=== PATIENT | female | born 1970 | race Caucasian/White ===

== ENCOUNTER 2016-08-05 21:12 | Emergency (ER) | payer OTHER ==
[~2016-08-05] VITALS: Ht 165.1 cm; Wt 89.3 kg
[~2016-08-05 21:12] MED LIST: ALBU1AER9 INH; CIPR-255 PO
[2016-08-05 21:17] VITALS: TEMP 36.8; Ht 165.1 cm; Wt 89.3 kg
[2016-08-05] MEDS ORDERED: SODIUM CHLORIDE 0.9% 1000ML 1,000 ML IV STA (22:23)
[2016-08-05] MEDS ORDERED: LORAZEPAM 2 MG/ML 1 ML VIAL IV STA ×2 (22:23→23:28)
--- NOTE | 2016-08-05 22:41 | EMERGENCY ROOM VISIT NOTE ---
History Report prepared by Krista: Nabeel Butt Under the Supervision of: Dr. Fredi Arevalo M.D. First contact with patient: 22:16 Chief Complaint: DETOX REQUEST Stated Complaint: WITHDRAWL FROM PILLS Nursing Triage Summary: Patient has a bed at a detox tomorrow and did not think she could make it through the night without some sort of help . History of Present Illness The patient is a 46 year old female who presents to the Emergency Room with complaints of withdrawal . She notes she was addicted to narcotics for years, and relapsed in May of 2016 and has been taking 6 to 10 Percocet and Vicodin everyday. She is to be admitted to a rehab facility tomorrow morning, but came in due to withdrawal symptoms over the last 48 hours. She notes having vomiting, diarrhea, abdominal pain, chills, and body aches. She denies any alcohol use, IV drug use, suicidal ideations, of other medical issues. She denies any history of smoking. She adds she recently had pneumonia. Source of History: patient Onset: about 48 hours ago Position: other (global) Quality: other (withdrawal symptoms) Timing: other (persistent) Associated Symptoms: + abdominal pain, + chills, + diarrhea, + vomiting Note: The patient notes having body aches. Review of Systems See HPI for pertinent positives & negatives. A total of 10 systems reviewed and were otherwise negative. Past Medical & Surgical Medical Problems: (1) Kidney stones Surgical Problems: (1) History of appendectomy (2) History of cholecystectomy (3) History of hysterectomy Family History Patient reports no known family medical history. Social History Smoking Status: Never Smoker Drug Use: none Marital Status: Housing Status: lives with family Occupation Status: employed Current/Historical Medications No Active Prescriptions or Reported Meds Allergies Coded Allergies: Vancomycin (Unverified Allergy, Severe, red man syndrome, 08/05/16) Physical Exam Vital Signs Date Time Temp Pulse Resp B/P Pulse Ox O2 Delivery O2 Flow Rate FiO2 08/06/16 00:47 104 18 125/88 98 08/05/16 23:09 82 16 129/89 96 Room Air 08/05/16 21:17 36.8 120 18 143/74 97 Room Air Physical Exam GENERAL: Patient is uncomfortable appearing and in mild distress. HEENT: No acute trauma, normocephalic atraumatic, mucous membranes dry, no nasal congestion, no scleral icterus. NECK: No stridor, no adenopathy, no meningismus, trachea is midline. LUNGS: No dyspnea. Clear to auscultation and equal bilaterally. No wheeze, no rhonchi. HEART: Tachycardic. No murmurs, rubs, gallops appreciated. ABDOMEN: Soft, nontender, bowel sounds positive, no masses appreciated, no peritonitis. BACK: No midline tenderness, no CVA tenderness EXTREMITIES: Normal motion all extremities, no cyanosis, no edema. NEUROLOGIC: Alert and oriented, no acute motor or sensory deficits, no focal weakness, cranial nerves grossly intact. SKIN: No rash, no jaundice, no diaphoresis. Medical Decision & Procedures Laboratory Results 08/05/16 22:30 Red Blood Count 4.54, Mean Corpuscular Volume 84.4, Mean Corpuscular Hemoglobin 29.1, Mean Corpuscular Hemoglobin Concent 34.5, Mean Platelet Volume 9.1, Neutrophils (%) (Auto) 69.5, Lymphocytes (%) (Auto) 21.7, Monocytes (%) (Auto) 7.8, Eosinophils (%) (Auto) 0.4, Basophils (%) (Auto) 0.3, Neutrophils # (Auto) 5.21, Lymphocytes # (Auto) 1.62, Monocytes # (Auto) 0.58, Eosinophils # (Auto) 0.03, Basophils # (Auto) 0.02 08/05/16 22:30 Test 08/05/16 22:30 08/05/16 22:36 08/05/16 22:47 White Blood Count 7.48 K/uL (4.8-10.8) Red Blood Count 4.54 M/uL (4.2-5.4) Hemoglobin 13.2 g/dL (12.0-16.0) Hematocrit 38.3 % (37-47) Mean Corpuscular Volume 84.4 fL (80-100) Mean Corpuscular Hemoglobin 29.1 pg (25-34) Mean Corpuscular Hemoglobin Concent 34.5 g/dl (32-36) Platelet Count 246 K/uL (130-400) Mean Platelet Volume 9.1 fL (7.4-10.4) Neutrophils (%) (Auto) 69.5 % Lymphocytes (%) (Auto) 21.7 % Monocytes (%) (Auto) 7.8 % Eosinophils (%) (Auto) 0.4 % Basophils (%) (Auto) 0.3 % Neutrophils # (Auto) 5.21 K/uL (1.4-6.5) Lymphocytes # (Auto) 1.62 K/uL (1.2-3.4) Monocytes # (Auto) 0.58 K/uL (0.11-0.59) Eosinophils # (Auto) 0.03 K/uL (0-0.5) Basophils # (Auto) 0.02 K/uL (0-0.2) RDW Standard Deviation 37.9 fL (36.4-46.3) RDW Coefficient of Variation 12.4 % (11.5-14.5) Immature Granulocyte % (Auto) 0.3 % Immature Granulocyte # (Auto) 0.02 K/uL (0.00-0.02) Est Creatinine Clear Calc Drug Dose 104.3 ml/min Estimated GFR () 110.6 Estimated GFR (Non- 95.4 BUN/Creatinine Ratio 12.1 (10-20) Calcium Level 9.5 mg/dl (8.5-10.1) Total Bilirubin 0.5 mg/dl (0.2-1) Aspartate Amino Transf (AST/SGOT) 14 U/L (15-37) Alanine Aminotransferase (ALT/SGPT) 35 U/L (12-78) Alkaline Phosphatase 88 U/L (45-117) Total Protein 7.8 gm/dl (6.4-8.2) Albumin 4.1 gm/dl (3.4-5.0) Globulin 3.7 gm/dl (2.5-4.0) Albumin/Globulin Ratio 1.1 (0.9-2) Bedside Hemoglobin 13.3 g/dl (12.0-16.0) Bedside Hematocrit 39 % (37-47) Bedside Sodium 143 mEq/L (135-144) Bedside Potassium 3.4 mEq/L (3.3-5.0) Bedside Chloride 103 mEq/L (101-112) Bedside Total CO2 23 mEq/l (24-31) Anion Gap 21.0 mmol/L (16-25) Bedside Blood Urea Nitrogen 8 mg/dl (7-18) Bedside Creatinine 0.7 mg/dl (0.6-1.3) Bedside Glucose (other) 113 mg/dl (70-99) Bedside Ionized Calcium (Lyric) 1.15 mmol/l (1.12-1.32) Bedside Lactic Acid Venous 1.66 mmol/L (0.90-1.70) Laboratory results as reviewed by me. Medications Administered Medications (Trade) Dose Ordered Sig/Jaelyn Route Start Time Stop Time Status Last Admin Dose Admin Sodium Chloride (Nss 1000ml) 1,000 ml @ 999 mls/hr Q1H1M STAT IV 08/05/16 22:23 08/05/16 23:23 DC 08/05/16 22:44 999 MLS/HR Lorazepam (Ativan Inj) 1 mg NOW STAT IV 08/05/16 22:23 08/05/16 22:25 DC 08/05/16 22:45 1 MG Lorazepam (Ativan Inj) 2 mg NOW STAT IV 08/05/16 23:28 08/05/16 23:29 DC 08/05/16 23:32 2 MG Ondansetron HCl (Zofran Inj) 4 mg NOW STAT IV 08/05/16 23:28 08/05/16 23:29 DC 08/05/16 23:32 4 MG Lorazepam (Ativan 1MG Home Pack) 1 homepack UD ONCE PO 08/06/16 00:45 08/06/16 00:46 DC 08/06/16 00:43 1 HOMEPACK Ondansetron HCl (ZOFRAN ODT 4MG Home Pack) 1 homepack UD ONCE PO 08/06/16 00:45 08/06/16 00:46 DC 08/06/16 00:43 1 HOMEPACK ED Course 2217: The patient was evaluated in room A10. A complete history and physical exam was performed. 2223: Ordered Ativan Inj 1 mg IV, and NSS 1,000 ml @ 999 mls/hr IV. 2327: The patient notes the Ativan did nothing for her. 2328: Ordered Zofran Inj 4 mg IV, and Ativan Inj 2 mg IV. 0030: Reevaluated the patient. Discussed results and discharge instructions: She verbalized understanding and agreement. The patient is ready for discharge. Medical Decision 46 yr old female 48 hours post last narcotic after several months of daily large doses of narcotics. She has rehab appointment for inpatient treatment in just 8-10 hours but feels she is worried she may use again she feels so miserable. Labs unremarkable and even lactic acid normal. Given fluids along with ativan. Initial ativan of minimal benefit thus given 2 mg IV ativan. She is sleeping and looks much improved with normal HR. She was awoken and states she still feels likel bugs crawling on skin though she is clealry much calmer. I do not feel that further IV fluids nor ativan necessary. Will hold off on any meds other than just a limited to go supply ativan and zofran necessary as she will be seeing rehab in am. I discussed that we are always available if she thinks symptoms are out of control or something is occurring. I did have lavon discussion that there is no simple solution to her symptoms as this is the process of narcotic withdrawal. Impression Primary Impression: Opioid withdrawal Additional Impression: Opioid dependence with withdrawal Scribe Attestation The scribe's documentation has been prepared under my direction and personally reviewed by me in its entirety. I confirm that the note above accurately reflects all work, treatment, procedures, and medical decision making performed by me. Departure Information Dispostion Home / Self-Care Prescriptions No Active Prescriptions or Reported Meds Patient Instructions ED Withdrawal Narcotic, [facility] Additional Instructions You have received a benzodiazepine sedative medication. These medications may cause drowsiness and should not be used with other sedative medications. DO NOT TAKE ANY NARCOTICS THESE WILL CAUSE SEVERE SEDATION LEADING TO BREATHING ISSUES AFTER ATIVAN USE. Do not drive, drink alcohol, perform dangerous activities, nor make important decisions after taking these medications. [facility] use or inappropriate use may lead to addiction. Problem Qualifiers
[2016-08-05 22:50] LABS: BASO % 0.3 %; BASO ABS # 0.02 K/uL (0-0.2); COMPLETE YES; EOS % 0.4 %; HEMATOCRIT 38.3 % (37-47); IG% 0.3 %; LYMPH % 21.7 %; LYMPH ABS # 1.62 K/uL (1.2-3.4); MEAN CELL VOLUME 84.4 fL (80-100); MEAN CORPUSCULAR HEMOGLOBIN 29.1 pg (25-34); MEAN CORPUSCULAR HGB CONC 34.5 g/dl (32-36); MEAN PLATELET VOLUME 9.1 fL (7.4-10.4); MONO % 7.8 %; NEUT % 69.5 %; PLATELET COUNT 246 K/uL (130-400); RED BLOOD COUNT 4.54 M/uL (4.2-5.4); WHITE BLOOD COUNT 7.48 K/uL (4.8-10.8)
[2016-08-05 23:02] LABS: BUN/CREATININE RATIO 12.1 (10-20); CALCIUM 9.5 mg/dl (8.5-10.1); CREATININE 0.76 mg/dl (0.60-1.20); POTASSIUM 3.4 mmol/L (3.5-5.1)
[2016-08-05 23:04] LABS: ALB/GLOB RATIO 1.1 (0.9-2)
[2016-08-05] MEDS ORDERED: ONDANSETRON INJ 2 MG/ML 2 ML VIAL IV STA (23:28)
[2016-08-06] MEDS ORDERED: ONDANSETRON HOME PACK 4MG OD TAB PO ONE (00:45)
[2016-08-06] MEDS ORDERED: ATIVAN 1MG HOMEPACK PO ONE (00:45)
[2016-08-06 00:47] VITALS: BP 125/88; PULSE 104; O2SAT 98
== END 2016-08-06 00:48 | disposition home or self-care (01) ==
LOC: C.EDB 21:14 → C.EDA 08-06 00:48
DX: F11.23 Opioid dependence with withdrawal (principal); Z87.442 Personal history of urinary calculi; Z90.710 Acquired absence of both cervix and uterus; Z90.49 Acquired absence of other specified parts of digestive tract